=== PATIENT | female | born 1965 | race Caucasian/White ===

== ENCOUNTER → 2017-02-23 | Outpatient (CLI) | payer OTHER ==
--- NOTE | ~2017-02-23 | CT71 ---
[facility] A Service of [facility] & [facility] RADIOLOGY TEXT RESULTS PATIENT: EMILEE BLANCA LOCATION: [facility] : 61 UNIT #: [id number] AGE: [address]: Scott Ojeda MD SEX: F ORDER DR: [id number] [facility]. [place], [place] [address] [id number] O MR#: [id number] Acc #: [id number] NAME: EMILEE BLANCA : 1965 SEX: F STUDY DATE/TIME: 02/23/2017 10:35 UNIT: [facility] ROOM: STUDY DESCRIPTION: CT Head Wo Contrast Attending Physician: Scott Ojeda M.D. Referring Physician: Scott Ojeda M.D. Ordering Physician: Scott Ojeda M.D. Primary Care Physician: Scott Ojeda M.D. MEDICAL IMAGING REPORT This report is preliminary unless electronic signature is present EXAM Head CT no contrast CLINICAL HISTORY 1-year history of bilateral headaches and right periorbital headache. TECHNIQUE Axial noncontrast images were obtained from the skull base to the vertex. This CT exam was performed with one or more of the following radiation dose reduction techniques: automatic exposure control, adjustment of mA and/or kV according to patient size, and iterative reconstruction. FINDINGS Ventricular size and configuration are normal. There is no evidence of acute infarct or hemorrhage. There are no extra-axial fluid collections. No mass lesion or mass effect is seen. There are no skull fractures. IMPRESSION Normal noncontrast head CT. Dictated by... Damián Dsouza M.D. THIS IS AN ELECTRONICALLY VERIFIED REPORT Damián Dsouza M.D. at 02/25/2017 3:58 PM TIM/armen TD: 02/23/2017 15:41 JOB #: [id number] MEDICAL IMAGING REPORT Page 1 of 1 COPY
== END | disposition home or self-care (01) ==
LOC: CCAT 02-22 07:40
DX: R51 Headache (principal); J34.89 Other specified disorders of nose and nasal sinuses
CPT/HCPCS: 70450